=== PATIENT | female | born 2005 | race Caucasian/White ===

== ENCOUNTER 2024-09-25 07:21 | Outpatient (CLI) | payer OTHER, SELFPAY ==
--- NOTE | ~2024-09-25 | US_ITS ---
EXAMINATION: US OB <= 14 weeks fetus DATE: 09/25/2024 08:11 INDICATION: Amenorrhea TECHNIQUE: Real-time transabdominal obstetric ultrasound. FINDINGS: No prior studies for comparison. The uterus measures 13.5 x 7.7 x 9.5 cm. There is an intrauterine gestational sac, with pole id entified. The crown rump length measures 4.9 cm, which correlates with a estimated gestational age o f 11 weeks 5 days. heart tones are identified measuring 146 BPM. The ovaries are within isa l limits. Right ovary measures 2.8 x 2.3 x 2.6 cm. Left ovary measures 4.3 x 1.3 x 2.5 cm. IMPRESSION: 1. SL IUP with an EGA of 11 weeks, 5 days (EDC by current ultrasound of 04/11/2025). Reviewed, dictated and finalized at location A. IMPRESSION: 1. SL IUP with an EGA of 11 weeks, 5 days (EDC by current ultrasound of 025).
--- OUTSIDE RECORDS SUMMARY | 2024-09-25 07:25 | XMS_ITS | Clinical Summary ---
Author Organization [facility] Address [address] [place] [address] Care Team Providers Care Journeyman Apprentice Electricians Name Role Phone Unavailable Primary Care Provider Unavailabl e Source Comments [facility],non-owned Affiliates and Associated Physician Practices is amultiple site organization consisting of ambulatory clinics and hospital sitesin [place], [place], [place] and [place]. This disclosure is being madepursuant to the Care Everywhere program and may not contain all information available regarding this patient. Last updated 18.[facility] Allergies No known active allergies Medications * Be aware that medications may not be up to date on this document. Alwaysverify current medications with the patient. mirtazapine (REMERON) 15 MG tablet Take 15 mg by mouth at bedtime. Active melatonin 3 MG tablet Take 3 mg by mouth at bedtime. Active loratadine (CLARITIN) 10 MG tablet Take 10 mg by mouth once daily as needed for Runny Nose or Allergies Active Social History Tobacco Use Types Packs/Day Years Used Date Smoking Tobacco: Passive Smo ke Exposure - Never Smoker Comments Unknown Sex and Gender Information Value Date Recorded Sex Assigned at Not on file Legal Sex Female 5:45 AM POLYSOMNOGRAPHIC TECH Gender Identity Not on file Sexual Orientation Not on file Last Filed Vital Signs Vital Sign Reading Time Taken Comments Blood Pressure 102/68 05/28/2018 8:53 AM POLYSOMNOGRAPHIC TECH Pulse 76 05/28/2018 8:53 AM POLYSOMNOGRAPHIC TECH Temperature 36.9 C (98.5 F) 08/16/2014 12:40 AM CDT Respiratory Rate 16 05/28/2018 8:53 AM POLYSOMNOGRAPHIC TECH Oxygen Saturation 100% 08/16/2014 12:40 AM CDT Inhaled Oxygen Concentration - - Weight 55.6 kg (122 lb 9.2 oz) 05/28/2018 8:53 A M POLYSOMNOGRAPHIC TECH Height 163.5 cm (5' 4.37 ) 05/28/2018 8:53 AM CS T Body Mass Index 20.8 05/28/2018 8:53 AM POLYSOMNOGRAPHIC TECH Plan of Treatment Health Maintenance Due Date Last Done Comments HIV SCREENING 2019 HPV VACCINE (1 - 3-dose series) 2019 CHLAMYDIA/GONORRHEA SCREENING 2020 MENINGOCOCCAL (Group B) VACC INE SHARED DECISION-MAKING (1 of 2 - Standard) 2020 HEPATITIS C SCREENING 07/13/2022 DTAP/TDAP/TD VACCINES (1 - Tdap) 2023 HEPATITIS B VACCINE (1 of 3 - 19+ 3-dose series) 2023 COVID-19 VACCINE (1 - 2023-2 5 season) 2024 DEPRESSION SCREENING 06/09/2024 INFLUENZA VACCINE (Season Ended) 2025 ZOSTER VACCINE (1 of 2) 2054 HIB VACCINE Aged Out No longer eligi ble based on patient's age to complete this topic MENINGOCOCCAL GROUPS A/C/Y/W VACCINE Aged Out No longer eligible b ased on patient's age to complete this topic PNEUMOCOCCAL VACCINE Aged Out No long er eligible based on patient's age to complete this topic Additional Health Concerns Infection Onset Date Last 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
== END 2024-09-25 07:22 | disposition home or self-care (01) ==
PROVIDERS: Visit Provider Nurse Practitioner Obstetrics & Gynecology
DX: Z34.91 Encounter for supervision of normal pregnancy, unspecified, first trimester (principal); Z3A.11 11 weeks gestation of pregnancy
CPT/HCPCS: 76801

== ENCOUNTER 2024-10-18 12:55 | Outpatient (CLI) | payer OTHER, SELFPAY ==
--- OUTSIDE RECORDS SUMMARY | 2024-10-18 13:01 | XMS_ITS | Clinical Summary ---
Author Organization [facility] Address [address] [place] [address] Care Team Providers Care Schedule Checker Name Role Phone Unavailable Primary Care Provider Unavailabl e Source Comments [facility],non-owned Affiliates and Associated Physician Practices is amultiple site organization consisting of ambulatory clinics and hospital sitesin [place], [place], [place] and [place]. This disclosure is being madepursuant to the Care Everywhere program and may not contain all information available regarding this patient. Last updated 18.[facility] Allergies No known active allergies Medications * [...] on file Legal Sex Female 5:45 AM DIRECTOR BLOOD BANK Gender Identity Not on file Sexual Orientation Not on file Last Filed Vital Signs Vital Sign Reading Time Taken Comments Blood Pressure 102/68 05/28/2018 8:53 AM DIRECTOR BLOOD BANK Pulse 76 05/28/2018 8:53 AM DIRECTOR BLOOD BANK Temperature 36.9 C (98.5 F) 08/16/2014 12:40 AM CDT Respiratory Rate 16 05/28/2018 8:53 AM DIRECTOR BLOOD BANK Oxygen Saturation 100% 08/16/2014 12:40 AM CDT Inhaled Oxygen Concentration - - Weight 55.6 kg (122 lb 9.2 oz) 05/28/2018 8:53 A M DIRECTOR BLOOD BANK Height 163.5 cm (5' 4.37 ) 05/28/2018 8:53 AM CS T Body Mass Index 20.8 05/28/2018 8:53 AM DIRECTOR BLOOD BANK Plan of Treatment Health Maintenance Due Date [...] Date Last 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
[2024-10-18 13:23] LABS: Hematocrit 40.6 % (37.0-47.0); Hemoglobin 13.5 g/dL (12.0-15.0); Mean Corpuscular HGB Conc 33.3 g/dl (32-36); Mean Corpuscular Hemoglobin 31.9 pg (26-34); Mean Platelet Volume 10.7 fl (7.4-10.4); Platelet Count Result 199 k/mm3 (150-375); Red Blood Count 4.23 M/mm3 (4.2-5.4); Red Cell Distribution Width 13.6 % (11.5-14.5); White Blood Count 9.1 K/mm3 (4.5-10.0)
[2024-10-18 14:14] LABS: HIV 1/2 Ab P24 Ag Result Negative (Negative)
[2024-10-18 14:15] LABS: Syphilis IgG/IgM Antibody Negative (Negative)
[2024-10-18 14:15] LABS: Add Urine Microscopic? YES; Appearance Urine Clear (Clear); Bacteria Urine 1+ /hpf; Bilirubin Urine Negative (Negative); Blood Urine Negative (Negative); Color Urine Yellow (Yellow); Glucose Urine UA Negative (Negative); Ketones Urine Negative (Negative); Leukocyte Esterase Ur Trace LEU/UL (Negative); Nitrate Urine Negative (Negative); Non Pathogenic Casts 0-2; Protein Urine Negative (Negative); RBC Urine 0-2 /hpf (0-2); Specific Grav Ur 1.014 (1.001-1.035); Squamous Epithelial Cell Urine Occasional /hpf (Few); Urobilinogen Urine 0.2 mg/dL (<2.0); pH Urine 8.5 (5.0-9.0)
[2024-10-18 14:18] LABS: Hepatitis B Surface Antigen Negative (Negative); Rubella IgG Antibody 44.9 IU/ML
[2024-10-18 14:35] LABS: Hepatitis C Virus Antibody Negative (Negative)
[2024-10-19 20:19] LABS: Hematocrit 42.4 % (35.0-45.0); Hemoglobin 13.6 g/dL (11.7-15.5); MCH 31.9 pg (27.0-33.0); MCV 99.5 fL (80.0-100.0); RDW 12.8 % (11.0-15.0); Red Blood Cell Count 4.26 Million/uL (3.80-5.10)
== END 2024-10-18 12:56 | disposition home or self-care (01) ==
PROVIDERS: Visit Provider Obstetrics & Gynecology
DX: Z34.90 Encounter for supervision of normal pregnancy, unspecified, unspecified trimester (principal); Z3A.00 Weeks of gestation of pregnancy not specified
CPT/HCPCS: 36415; 81001; 83021; 84443; 85027; 86593; 86703; 86762; 86803; 86850; 86900; 86901; 87086; 87340; G0432

== ENCOUNTER 2024-11-26 13:30 | Outpatient (CLI) | payer OTHER, SELFPAY | END 2024-11-26 13:31 | disposition home or self-care (01) | LOC: ANHLAB 13:31 | PROVIDERS: Visit Provider Obstetrics & Gynecology | DX: Z34.90 Encounter for supervision of normal pregnancy, unspecified, unspecified trimester (principal) | CPT/HCPCS: 36415; 86787 ==

== ENCOUNTER 2025-02-14 15:58 | Outpatient (CLI) | payer OTHER, SELFPAY ==
--- OUTSIDE RECORDS SUMMARY | 2025-02-14 16:02 | XMS_ITS | Clinical Summary ---
Author Organization [facility] Address [address] [place] [address] Care Team Providers Care Technical Report Writer Name Role Phone Unavailable Primary Care Provider Unavailabl e Source Comments [facility],non-owned Affiliates and Associated Physician Practices is amultiple site organization consisting of ambulatory clinics and hospital sitesin [place], [place], [place] and [place]. This disclosure is being madepursuant to the Care Everywhere program and may not contain all information available regarding this patient. Last updated 18.[facility] Allergies No known active allergies Medications [...] needed for Runny Nose or Allergies Active -FeFum- FA-DHA w/o A ( + DHA PO) Take 1 Each by mouth once daily Active Encounters Date Type Department Care Team Description 12/20/2024 8:04 AM CDT - 12/20/2024 11:59 PM CDT Hospital Encounter [facility] [address] [place] [address] Carla Card MD Discharge Disposition: Home or Self Care 11/22/2024 7:30 AM CDT - 11/22/2024 11:59 PM CDT Hospital Encounter [facility] [address] [place] [id number] Robi Faith MD Discharge Disposition: Home or Self Care from Last 3 Months Social History Tobacco Use Types Packs/Day Years Used Date Smoking Tobacco: Passive Smo ke Exposure - Never Smoker Estimated Date of Delivery Comme nts Yes 04/06/2025 Based on last me nstrual period of 06/30/2024 Sex and Gender Information Value Date Recorded Sex Assigned at Not on file Legal Sex Female 5:45 AM ENVIRONMENTAL COORDINATOR Gender Identity Not on file Sexual Orientation Not on file Last Filed Vital Signs Vital Sign Reading Time Taken Comments Blood Pressure 102/68 05/28/2018 8:53 AM ENVIRONMENTAL COORDINATOR Pulse 76 05/28/2018 8:53 AM ENVIRONMENTAL COORDINATOR Temperature 36.9 C (98.5 F) 08/16/2014 12:40 AM CDT Respiratory Rate 16 05/28/2018 8:53 AM ENVIRONMENTAL COORDINATOR Oxygen Saturation 100% 08/16/2014 12:40 AM CDT Inhaled Oxygen Concentration - - Weight 55.6 kg (122 lb 9.2 oz) 05/28/2018 8:53 A M ENVIRONMENTAL COORDINATOR Height 163.5 cm (5' 4.37) 05/28/2018 8:53 AM CS T Body Mass Index 20.8 05/28/2018 8:53 AM ENVIRONMENTAL COORDINATOR Plan of Treatment Health Maintenance Due Date Last Done Comments HIV SCREENING 2019 HPV VACCINE (1 - 3-dose series) 2019 CHLAMYDIA/GONORRHEA SCREENING 2020 MENINGOCOCCAL (Group B) VACC INE SHARED DECISION-MAKING (1 of 2 - Standard) 2020 HEPATITIS C SCREENING 07/13/2022 DTAP/TDAP/TD VACCINES (1 - Tdap) 2023 HEPATITIS B VACCINE (1 of 3 - 19+ 3-dose series) 2023 DEPRESSION SCREENING 06/09/2024 OB-ONE HOUR GLUCOSE 12/29/2024 OB-TDAP CURRENT 01/05/2025 OB-RHOGAM INJECTION 01/12/2025 COVID-19 VACCINE (1 - 2023-2 5 season) 2025 INFLUENZA VACCINE (#1) 2025 Respiratory Syncytial Virus (RSV) Vaccine Pt: or over 60 yrs (1 - Risk 1-dose series) 02/09/2025 ZOSTER VACCINE (1 of 2) 2054 HIB VACCINE Aged Out No longer eligi ble based on patient's age to complete this topic MENINGOCOCCAL GROUPS A/C/Y/W VACCINE Aged Out No longer eligible b ased on patient's age to complete this topic PNEUMOCOCCAL VACCINE Aged Out No long er eligible based on patient's age to complete this topic Procedures Procedure Name Priority Date/Time Associated Diagnosis Comments SONOGRAM - COMPLETE Routine 12/20/2024 8 :14 AM CDT Encounter for supervision of normal first in second trimester (HCC) 23 weeks gestation of ([facility] Encounter for follow-up ultrasound of anatomy ([facility]) Encounter for ultrasound to assess growth ([facility]) SONOGRAM - COMPLETE Routine 11/22/2024 7 :28 AM CDT Encounter for anatomic survey ([facility]) 20 weeks gestation of ([facility]) Encounter for supervision of normal first in second trimester ([facility]) from Last 3 Months Results * Sonogram - Complete (12/20/2024 8:14 AM CDT) Only the most recent of2 resultswithin the time period is included. Linked Results Indication ======== Encounter for other screening follow-up Asthma complicating History ====== OB History 1 Maternal Assessment Physical Exam Height 163 cm, 5 ft 4 in. Weight 68 kg, 150 lb. Initial weight 53 kg, 117 lb. BMI 25.75 kg/m . Initial BMI 20.08 kg/m . Weight gain 15 kg, 33 lb Method ====== Transabdominal ultrasound, Transabdominal ultrasound. View: Sufficient ========= Gore . Number of fetuses: 1 Dating ====== Date Details Gest. age GEGE LMP 06/30/2024 24 w + 5 d 04/06/2025 Stated GEGE 24 w + 5 d 04/06/2025 Previous U/S 09/26/2024 GA, GA 11 w + 5 d 23 w + 6 d 04/12/2025 U/S 12/20/2024 based upon AC, BPD, Femur, HC 24 w + 3 d 04/08/2025 Assigned dating based on the LMP, selected on 11/22/2024 24 w + 5 d 04/06/2025 General Evaluation Cardiac activity present. FHR 143 bpm. Presentation: variable Placenta: Placental site: posterior Umbilical cord: 3-vessel cord and normal placental cord insertion site were documented previously Amniotic fluid: Amount of AF: normal. MVP 6.2 cm Biometry BPD 59.0 mm 24w 1d 22% Hadlock HC 221.3 mm 24w 1d 14% Hadlock AC 210.1 mm 25w 4d 68% Hadlock Femur 42.6 mm 23w 6d 15% Hadlock Humerus 42.8 mm 25w 4d 71% Sandra HC / AC 1.05 Weight Calculation: EFW 732 g 42% Hadlock EFW (lb,oz) 1 lb 10 oz EFW by Hadlock (HC-AC-FL) Growth Overview Exam date GA BPD (mm) HC (mm) AC (mm) FL (mm) HL (mm) EFW (g) 11/22/2024 20w 5d 45.3 13% 172.7 10% 163.7 67% 38.8 91% 32.5 56% 436 87% 12/20/2024 24w 5d 59 22% 221.3 14% 210.1 68% 42.6 15% 42.8 71% 732 42% Anatomy The following structures appear normal: Heart / Thorax RVOT view. LVOT view. Bicaval view. Ductal arch view. Abdomen Stomach. Kidneys. Bladder. Extremities / Skeleton Left leg. Left foot. The following structures were documented previously: Head / Neck Cranium. Lateral ventricles. Choroid plexus. Midline falx. Cavum septi pellucidi. Cerebellum. Cisterna magna. Thalami. Nuchal fold. Face Lips. Profile. Nose. Nasal bone. Orbits. Heart / Thorax 4-chamber view. 3-vessel view. [id number]-[id number] view. Situs. Aortic arch view. Great vessels. Right lung. Left lung. Diaphragm. Abdomen Cord insertion. Bowel. Genitals. Spine Cervical spine. Thoracic spine. Lumbar spine. Sacral spine. Extremities / Skeleton Arms. Hands. Right leg. Right foot. sex: male. Impression ========= 1) Gore gestation, 24w5d 2) Biometry is consistent with appropriate growth 3) The amniotic fluid volume is within normal limits 4) No abnormalities have been detected on the, now complete, anatomic survey Comment ======== ultrasound alone cannot detect all structural, genetic, or functional , placental, or maternal abnormalities Follow-up ======== Follow-up ultrasound only if clinically indicated Coding ====== Diagnoses O99.512, J45.909: Diseases of the respiratory system complicating , Asthma Procedures 69607: US Preg Uterus Follow Up [facility] GTI PACS Anatomical Region Laterality Modality Other 12/20/2024 8:14 AM CDT Arturo Elizondo MD [facility] ORDERABLES Edited Result - Final from Last 3 Months Additional Health Concerns Infection Onset Date Last 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
[2025-02-14 16:15] LABS: Hematocrit 37.7 % (37.0-47.0); Hemoglobin 12.6 g/dL (12.0-15.0); Mean Corpuscular HGB Conc 33.4 g/dl (32-36); Mean Corpuscular Hemoglobin 32.1 pg (26-34); Mean Corpuscular Volume 95.9 fl (80-100); Platelet Count Result 200 k/mm3 (150-375); Red Blood Count 3.93 M/mm3 (4.2-5.4); White Blood Count 10.4 K/mm3 (4.5-10.0)
[2025-02-14 17:01] LABS: Syphilis IgG/IgM Antibody Non-Reactive (Nonreactive)
[2025-02-14 17:11] LABS: HIV 1/2 Ab P24 Ag Result Negative (Negative)
== END 2025-02-14 15:59 | disposition home or self-care (01) ==
PROVIDERS: Visit Provider Nurse Practitioner Obstetrics & Gynecology
DX: Z34.90 Encounter for supervision of normal pregnancy, unspecified, unspecified trimester (principal); Z3A.00 Weeks of gestation of pregnancy not specified
CPT/HCPCS: 36415; 85027; 86593; 86703; G0432

== ENCOUNTER 2025-03-29 13:10 | Outpatient (RCR) | payer OTHER, SELFPAY ==
[2025-02-13 13:24] VITALS: BP 113/72; PULSE 83
--- NOTE | ~2025-03-29 | US_ITS ---
EXAMINATION: US OB follow up DATE: 03/29/2025 14:52 INDICATION: Estimated weight TECHNIQUE: Real-time transabdominal obstetric ultrasound. FINDINGS: Comparison to multiple prior studies sequentially, with oldest reviewed study dated 09/25/2024. There is a single living fetus in vertex presentation. The placenta is posterior without placenta previa. ATILIO is normal measuring 20.9 cm. cardiac activity and movement is noted with a heart rate of 128 beats per minute. The amniotic fluid volume is normal. The following biometric data were obtained: BPD: 95mm corresponds to gestational age 39 weeks 0 days. Head circumference: 349mm corresponds to gestational age 40 weeks 4 days. Abdominal circumference: 387mm which is out of range greater than 97th percentile. Femur length: 72mm corresponds to gestational age 37 weeks 0 days. Estimated weight: 4236grams +/- 635grams, greater than 97th percentile.] IMPRESSION: 1. Single living intrauterine in vertex presentation with an estimated gestational age of 38 weeks 6 days by inititial ultrasound. Accelerated interval growth. Estimated weight is greater than 97th percentile. 2. Normal placenta. Reviewed, dictated and finalized at location O. IMPRESSION: 1. Single living intrauterine in vertex presentation with an estimat ed gestational age of 38 weeks 6 days by inititial ultrasound. Accelerated inte rval growth. Estimated weight is greater than 97th percentile. 2. Normal placenta.
--- NOTE | ~2025-03-29 | US_ITS ---
EXAMINATION: US OB BPP wo non-stress, 02/13/2025 12:10 CDT HISTORY: Y Comparison: None Technique: Cool-scale and color Doppler images were obtained FINDINGS: Single live intrauterine in vertex presentation. The placenta is located posteriorly and is transverse. cardiac heart rate 124. breathing demonstrated. IMPRESSION: Single live intrauterine . Reviewed, dictated and finalized at location A. IMPRESSION: Single live intrauterine .
[2025-03-29 16:23] VITALS: BP 126/75; PULSE 83
== END 2025-03-29 16:48 | disposition other institution (70) ==
LOC: ANHOBOP 13:10
PROVIDERS: Visit Provider Obstetrics & Gynecology
DX: O36.8190 Decreased fetal movements, unspecified trimester, not applicable or unspecified (principal); Z3A.32 32 weeks gestation of pregnancy; Z3A.38 38 weeks gestation of pregnancy
CPT/HCPCS: 59025; 76816; 76819

== ENCOUNTER 2025-03-29 16:11 | Inpatient (IN) | payer OTHER, SELFPAY ==
[2025-03-29] VITALS (35 sets, daily range): BP systolic 101–133; BP diastolic 71–86; PULSE 58–125; TEMP 37.2; O2SAT 93–100; BMI 31.0
[2025-03-29] MEDS: LACTATED RINGERS 1,000 ML 999 ML IV CONT (17:17)
[2025-03-29 17:31] LABS: Hematocrit 39.9 % (37.0-47.0); Hemoglobin 13.4 g/dL (12.0-15.0); Immature Granulocyte Percent A 0.5 % (0-0.5); Lymphocytes Absolute Auto 2.48 K/mm3 (0.9-3.2); Mean Corpuscular HGB Conc 33.6 g/dl (32-36); Mean Corpuscular Hemoglobin 31.9 pg (26-34); Mean Corpuscular Volume 95.0 fl (80-100); Nucleated Red Blood Cells Absolute Auto 0.000 K/mm3 (0.0-0.012); Nucleated Red Blood Cells Perc 0.0 % (0.0-0.2); Platelet Count Result 201 k/mm3 (150-375); Red Blood Count 4.20 M/mm3 (4.2-5.4); White Blood Count 11.9 K/mm3 (4.5-10.0)
--- NOTE | 2025-03-29 17:42 | LDADM ---
This patient, Lico Montgomery, was admitted to Labor/Delivery/Recovery 107 on 03/29/25 at 16:11. Plans for labor, pain management and were discussed with patient. Patient/family oriented to hospital policies and general routines including ID bracelet, bed and alarms, visiting hours, pain management, procedures, bathroom and other care routines, personal items, smoking policy, room service/diet and guest tray routines, security routines, and visiting hours. Patient/Family are encouraged to report perceived risks to care and to ask questions if they do not understand what they are told or what they should do. See OBIX for further documentation.
--- NOTE | 2025-03-29 17:50 | WPDANESEPP ---
Anes - Eval Pre Procedure Procedure: labor epidural Date/Time: 03/29/25 17:50 Surgeon: jean marie Preop Diagnosis: pain during labor Pre Op Diagnosis: iol Patient Data Age: 19 Gender: F Height: Weight: Last Vital Signs Pulse 81 03/29/25 17:16 BP 133/86 03/29/25 17:16 Allergies Allergy/AdvReac Type Severity Reaction Status Date / Time lavender Allergy Difficulty Uncoded 03/29/25 12:44 Breathing Home Medications ?Medication ?Instructions ?Recorded ?Confirmed ?Type docosahexaenoic acid 200 mg 200 mg PO DAILY #90 caps 10/18/24 03/21/25 Rx capsule ( DHA) Laboratory Tests 03/29/25 17:15 WBC 11.9 H K/mm3 (4.5-10.0) RBC 4.20 M/mm3 (4.2-5.4) Hgb 13.4 g/dL (12.0-15.0) Hct 39.9 % (37.0-47.0) MCV 95.0 fl (80-100) MCH 31.9 pg (26-34) MCHC 33.6 g/dl (32-36) RDW 14.2 % (11.5-14.5) Plt Count 201 k/mm3 (150-375) MPV 11.4 H fl (7.4-10.4) Immature Gran % (Auto) 0.5 % (0-0.5) Neut % (Auto) 70.0 % (45.5-73.1) Lymph % (Auto) 20.8 % (18.3-44.2) [place] % (Auto) 7.7 % (2.6-8.5) Eos % (Auto) 0.6 % (0-4.4) Baso % (Auto) 0.4 % (0.2-1.2) Lymph # (Auto) 2.48 K/mm3 (0.9-3.2) [place] # (Auto) 0.9 H K/mm3 (0.1-0.6) Eos # (Auto) 0.1 K/mm3 (0-0.3) Baso # (Auto) 0.1 K/mm3 (0.0-0.1) Abs Immat Gran (auto) 0.06 H K/mm3 (0.00-0.031) Absolute Neuts (auto) 8.4 H K/mm3 (1.3-6.7) Absolute Nucleated RBC 0.000 K/mm3 (0.0-0.012) Nucleated RBC % 0.0 % (0.0-0.2) Patient hx anesthesia problems: none Family hx anesthesia problems: none Results Review: All pre-operative results and documents have been reviewed as part of the pre-operative evaluation. [facility] Past Medical History Medical History (Updated 03/29/25 @ 17:51 by Fay Gould CRNA) Asthma IUP (intrauterine ), incidental Encounter for Depo-Provera contraception History of irregular menstrual bleeding Lactose intolerance Family History Family History Father Alcoholism Depression Anxiety Grandparent Alcoholism Grandparent Alcoholism Social History Social History Smoking status: Current every day smoker Tobacco type: e-cigarettes/vaping Alcohol intake: never Substance use: never Do You Feel Safe in your Home?: Yes Lack of Transportation: No Lack of Food: Never True Current Housing: I Have Housing Concerned About Future Housing: No Difficulty Paying Gas/Electric Bills: No Difficulty Paying for Meds: No Currently Unemployed: No Education: High School Diploma/GED Difficulty w/ Childcare or Family Care: No Spiritual care concerns: No Exam Day of Procedure 03/29/25 17:50
[2025-03-29 18:31] LABS: Syphilis IgG/IgM Antibody Non-Reactive (Nonreactive)
--- OUTSIDE RECORDS SUMMARY | 2025-03-29 19:46 | XMS_ITS | Clinical Summary ---
Author Organization [facility] Address [address] [place] [address] Care Team Providers Care Solar Resource Assessor Name Role Phone Unavailable Primary Care Provider Unavailabl e Source Comments [facility],non-owned Affiliates and Associated Physician Practices is amultiple site organization consisting of ambulatory clinics and hospital sitesin [place], [place], [place] and [place]. This disclosure is being madepursuant to the Care Everywhere program and may not contain all information available regarding this patient. Last updated 18.[facility] Allergies No known active allergies [...] 1 Each by mouth once daily Active Social History Tobacco Use Types Packs/Day Years Used Date Smoking Tobacco: Passive Smo ke Exposure - Never Smoker Estimated Date of Delivery Comme nts Yes 04/06/2025 Based on last me nstrual period of 06/30/2024 Sex and Gender Information Value Date Recorded Sex Assigned at Not on file Legal Sex Female 5:45 AM CLIENT SUPPORT ASSOCIATE Gender Identity Not on file Sexual Orientation Not on file Last Filed Vital Signs Vital Sign Reading Time Taken Comments Blood Pressure 102/68 05/28/2018 8:53 AM CLIENT SUPPORT ASSOCIATE Pulse 76 05/28/2018 8:53 AM CLIENT SUPPORT ASSOCIATE Temperature 36.9 C (98.5 F) 08/16/2014 12:40 AM CDT Respiratory Rate 16 05/28/2018 8:53 AM CLIENT SUPPORT ASSOCIATE Oxygen Saturation 100% 08/16/2014 12:40 AM CDT Inhaled Oxygen Concentration - - Weight 55.6 kg (122 lb 9.2 oz) 05/28/2018 8:53 A M CLIENT SUPPORT ASSOCIATE Height 163.5 cm (5' 4.37) 05/28/2018 8:53 AM CS T Body Mass Index 20.8 05/28/2018 8:53 AM CLIENT SUPPORT ASSOCIATE Plan of Treatment Health Maintenance Due Date [...] CURRENT 01/05/2025 OB-RHOGAM INJECTION 01/12/2025 COVID-19 VACCINE ( - 2023-2 5 season) 2025 INFLUENZA VACCINE (#1) 2025 OB-GROUP B STREP SCREEN 03/02/2025 ZOSTER VACCINE (1 of 2) 2054 HIB VACCINE Aged Out No longer eligi ble based on patient's age to complete this topic MENINGOCOCCAL GROUPS A/C/Y/W VACCINE Aged Out No longer eligible b ased on patient's age to complete this topic PNEUMOCOCCAL VACCINE Aged Out No long er eligible based on patient's age to complete this topic Respiratory Syncytial Virus (RSV) Vaccine Pt: or over 60 yrs (No Doses Required) Completed Additional Health Concerns Infection Onset Date Last 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 * Guarantor: OPHELIA TRIPLETT Account Type Relation to Patient Date of Phone Billing Address Personal/Family Grandmother
[2025-03-29] MEDS: ZOLPIDEM TARTRATE (*CRX) 5 MG TABLET 10 MG PO (23:20)
[2025-03-30] VITALS (348 sets, daily range): BP systolic 93–146; BP diastolic 48–100; PULSE 29–197; RESP 18; TEMP 36.1–37.2; O2SAT 80–100
[2025-03-30] MEDS: LACTATED RINGERS 1,000 ML 125 ML IV CONT ×3 (05:10→10:33)
[2025-03-30] MEDS: OXYTOCIN 30 UNITS/NS 500 ML 30 UNITS/500 ML BAG IV CONT (07:02)
[2025-03-30] MEDS: ONDANSETRON INJ 4 MG/2 ML VIAL IV PUSH ×2 (13:17→19:18)
--- NOTE | 2025-03-30 14:55 | P.PNOB_ITS ---
Pain Control Date/time seen: 03/30/25 1159 Comments: Cat 2, AROM clear /.
--- NOTE | 2025-03-30 14:55 | PM.IMHP ---
H&P: HPI History of Present Illness Date/Time: 03/30/25 14:55 Chief Complaint: Non reassuring testing. Narrative: 19 y/o G1 admitted shanta 38 6/7 for nonrepetitive late decelerations. PNC uncomplicated. History of tobacco use which she stopped during . Ultrasound on day of admission showed LGA. [facility] Past Medical History Medical History Asthma IUP (intrauterine ), incidental Encounter for Depo-Provera contraception History of irregular menstrual bleeding Lactose intolerance Family History Family History Father Alcoholism Depression Anxiety Grandparent Alcoholism Grandparent Alcoholism Social History Social History Smoking status: Former smoker Tobacco type: e-cigarettes/vaping Smoking end date: 08/07/24 Alcohol intake: never Substance use: never Do You Feel Safe in your Home?: Yes Lack of Transportation: No Lack of Food: Sometimes True Current Housing: I Have Housing Concerned About Future Housing: No Difficulty Paying Gas/Electric Bills: No Difficulty Paying for Meds: No Currently Unemployed: No Education: High School Diploma/GED Difficulty w/ Childcare or Family Care: No Spiritual care concerns: No Meds Home Medications and Allergies Home Medications ?Medication ?Instructions ?Recorded ?Confirmed ?Type docosahexaenoic acid 200 mg 200 mg PO DAILY #90 caps 10/18/24 03/29/25 Rx capsule ( DHA) Allergies Allergy/AdvReac Type Severity Reaction Status Date / Time lavender Allergy Difficulty Uncoded 03/29/25 12:44 Breathing Vital Signs Vital Signs - 24 hr 03/29/25 17:04 03/29/25 17:16 03/29/25 17:41 Temperature Pulse Rate 87 81 Blood Pressure 131/83 133/86 Pulse Oximetry Oxygen Delivery Room Air 03/29/25 18:03 03/29/25 19:00 03/29/25 20:47 Temperature 99 F Pulse Rate 78 62 Blood Pressure 101/77 120/71 Pulse Oximetry Oxygen Delivery 03/29/25 21:01 03/29/25 21:40 03/29/25 21:55 Temperature Pulse Rate 66 Blood Pressure 114/73 Pulse Oximetry 98 97 Oxygen Delivery 03/29/25 22:00 03/29/25 22:01 03/29/25 22:02 Temperature 98.9 F Pulse Rate 66 Blood Pressure 124/85 Pulse Oximetry 100 99 Oxygen Delivery 03/29/25 22:07 03/29/25 22:10 03/29/25 22:15 Temperature Pulse Rate Blood Pressure Pulse Oximetry 98 100 100 Oxygen Delivery 03/29/25 22:20 03/29/25 22:25 03/29/25 22:30 Temperature Pulse Rate Blood Pressure Pulse Oximetry 100 100 100 Oxygen Delivery 03/29/25 22:47 03/29/25 22:47 03/29/25 22:52 Temperature Pulse Rate Blood Pressure Pulse Oximetry 99 98 99 Oxygen Delivery 03/29/25 22:57 03/29/25 23:01 03/29/25 23:02 Temperature Pulse Rate 74 Blood Pressure 118/80 Pulse Oximetry 98 100 Oxygen Delivery 03/29/25 23:07 03/29/25 23:11 03/29/25 23:16 Temperature Pulse Rate Blood Pressure Pulse Oximetry 100 99 100 Oxygen Delivery 03/29/25 23:18 03/29/25 23:23 03/29/25 23:28 Temperature Pulse Rate Blood Pressure Pulse Oximetry 100 99 100 Oxygen Delivery 03/29/25 23:31 03/29/25 23:36 03/29/25 23:41 Temperature Pulse Rate Blood Pressure Pulse Oximetry 100 100 100 Oxygen Delivery 03/29/25 23:46 03/29/25 23:48 03/29/25 23:51 Temperature Pulse Rate Blood Pressure Pulse Oximetry 100 100 93 Oxygen Delivery 03/29/25 23:56 03/30/25 00:00 03/30/25 00:01 Temperature 98.9 F Pulse Rate 65 Blood Pressure 120/77 Pulse Oximetry 98 98 Oxygen Delivery 03/30/25 00:06 03/30/25 00:11 03/30/25 00:16 Temperature Pulse Rate Blood Pressure Pulse Oximetry 98 98 98 Oxygen Delivery 03/30/25 00:21 03/30/25 00:21 03/30/25 00:27 Temperature Pulse Rate Blood Pressure Pulse Oximetry 98 99 98 Oxygen Delivery 03/30/25 00:32 03/30/25 00:37 03/30/25 00:42 Temperature Pulse Rate Blood Pressure Pulse Oximetry 97 96 96 Oxygen Delivery 03/30/25 00:47 03/30/25 00:52 03/30/25 00:57 Temperature Pulse Rate Blood Pressure Pulse Oximetry 96 95 95 Oxygen Delivery 03/30/25 01:01 03/30/25 01:06 03/30/25 01:11 Temperature Pulse Rate 111 H Blood Pressure 107/48 L Pulse Oximetry 94 95 97 Oxygen Delivery 03/30/25 01:16 03/30/25 01:21 03/30/25 01:26 Temperature Pulse Rate Blood Pressure Pulse Oximetry 97 97 98 Oxygen Delivery 03/30/25 01:31 03/30/25 01:36 03/30/25 01:41 Temperature Pulse Rate Blood Pressure Pulse Oximetry 97 97 97 Oxygen Delivery 03/30/25 01:47 03/30/25 01:50 03/30/25 01:51 Temperature Pulse Rate Blood Pressure Pulse Oximetry 100 99 100 Oxygen Delivery 03/30/25 01:56 03/30/25 02:01 03/30/25 02:06 Temperature Pulse Rate 77 Blood Pressure 118/71 Pulse Oximetry 98 97 97 Oxygen Delivery 03/30/25 02:11 03/30/25 02:20 03/30/25 02:23 Temperature Pulse Rate Blood Pressure Pulse Oximetry 98 97 99 Oxygen Delivery 03/30/25 02:28 03/30/25 02:33 03/30/25 02:38 Temperature Pulse Rate Blood Pressure Pulse Oximetry 99 99 98 Oxygen Delivery 03/30/25 02:43 03/30/25 02:48 03/30/25 02:51 Temperature Pulse Rate Blood Pressure Pulse Oximetry 100 100 99 Oxygen Delivery 03/30/25 02:56 03/30/25 03:01 03/30/25 03:06 Temperature Pulse Rate 93 Blood Pressure 122/81 Pulse Oximetry 99 98 99 Oxygen Delivery 03/30/25 03:10 03/30/25 03:12 03/30/25 03:17 Temperature Pulse Rate Blood Pressure Pulse Oximetry 98 99 100 Oxygen Delivery 03/30/25 03:20 03/30/25 03:25 03/30/25 03:30 Temperature Pulse Rate Blood Pressure Pulse Oximetry 98 95 95 Oxygen Delivery 03/30/25 03:35 03/30/25 03:40 03/30/25 03:45 Temperature Pulse Rate Blood Pressure Pulse Oximetry 96 95 95 Oxygen Delivery 03/30/25 03:50 03/30/25 03:55 03/30/25 04:00 Temperature Pulse Rate Blood Pressure Pulse Oximetry 95 95 96 Oxygen Delivery 03/30/25 04:01 03/30/25 04:05 03/30/25 04:06 Temperature Pulse Rate 87 Blood Pressure 119/79 Pulse Oximetry 95 97 Oxygen Delivery 03/30/25 04:11 03/30/25 04:14 03/30/25 04:19 Temperature Pulse Rate Blood Pressure Pulse Oximetry 97 99 97 Oxygen Delivery 03/30/25 04:24 03/30/25 04:29 03/30/25 04:34 Temperature Pulse Rate Blood Pressure Pulse Oximetry 97 97 97 Oxygen Delivery 03/30/25 04:39 03/30/25 04:44 03/30/25 04:49 Temperature Pulse Rate Blood Pressure Pulse Oximetry 97 98 97 Oxygen Delivery 03/30/25 04:54 03/30/25 04:59 03/30/25 05:04 Temperature Pulse Rate Blood Pressure Pulse Oximetry 97 98 97 Oxygen Delivery 03/30/25 05:05 03/30/25 05:10 03/30/25 05:13 Temperature Pulse Rate Blood Pressure Pulse Oximetry 99 98 98 Oxygen Delivery 03/30/25 05:25 03/30/25 05:27 03/30/25 05:32 Temperature Pulse Rate Blood Pressure Pulse Oximetry 100 98 98 Oxygen Delivery 03/30/25 05:37 03/30/25 05:42 03/30/25 05:47 Temperature Pulse Rate Blood Pressure Pulse Oximetry 99 98 97 Oxygen Delivery 03/30/25 05:52 03/30/25 05:57 03/30/25 06:01 Temperature Pulse Rate 91 Blood Pressure 119/76 Pulse Oximetry 97 99 Oxygen Delivery 03/30/25 06:02 03/30/25 06:07 03/30/25 06:12 Temperature Pulse Rate Blood Pressure Pulse Oximetry 98 100 98 Oxygen Delivery 03/30/25 06:14 03/30/25 06:35 03/30/25 06:40 Temperature Pulse Rate Blood Pressure Pulse Oximetry 99 97 98 Oxygen Delivery 03/30/25 06:45 03/30/25 06:46 03/30/25 06:50 Temperature Pulse Rate 123 H Blood Pressure 125/94 H Pulse Oximetry 99 100 Oxygen Delivery 03/30/25 06:55 03/30/25 07:00 03/30/25 07:01 Temperature Pulse Rate 81 Blood Pressure 131/90 Pulse Oximetry 99 99 Oxygen Delivery 03/30/25 07:05 03/30/25 07:10 03/30/25 07:11 Temperature Pulse Rate Blood Pressure Pulse Oximetry 99 99 99 Oxygen Delivery 03/30/25 07:16 03/30/25 07:21 03/30/25 07:26 Temperature Pulse Rate 72 Blood Pressure 123/79 Pulse Oximetry 99 99 100 Oxygen Delivery 03/30/25 07:28 03/30/25 07:31 03/30/25 07:39 Temperature Pulse Rate 77 Blood Pressure 121/77 Pulse Oximetry 97 100 Oxygen Delivery 03/30/25 07:44 03/30/25 07:49 03/30/25 07:54 Temperature Pulse Rate Blood Pressure Pulse Oximetry 99 99 99 Oxygen Delivery 03/30/25 07:59 03/30/25 08:00 03/30/25 08:04 Temperature 97.5 F L Pulse Rate Blood Pressure Pulse Oximetry 99 100 Oxygen Delivery 03/30/25 08:09 03/30/25 08:14 03/30/25 08:16 Temperature Pulse Rate 91 Blood Pressure 107/73 Pulse Oximetry 100 99 Oxygen Delivery 03/30/25 08:19 03/30/25 08:32 03/30/25 08:40 Temperature Pulse Rate 64 Blood Pressure 118/72 Pulse Oximetry 99 99 98 Oxygen Delivery 03/30/25 08:45 03/30/25 08:46 03/30/25 09:01 Temperature Pulse Rate 92 82 Blood Pressure 135/92 H 112/74 Pulse Oximetry 97 Oxygen Delivery 03/30/25 09:16 03/30/25 09:31 03/30/25 09:34 Temperature Pulse Rate 93 73 Blood Pressure 113/77 132/86 Pulse Oximetry 99 Oxygen Delivery 03/30/25 09:39 03/30/25 09:44 03/30/25 09:46 Temperature Pulse Rate 83 Blood Pressure 130/86 Pulse Oximetry 100 100 Oxygen Delivery 03/30/25 09:49 03/30/25 09:54 03/30/25 10:01 Temperature Pulse Rate 86 Blood Pressure 133/91 H Pulse Oximetry 100 99 100 Oxygen Delivery 03/30/25 10:06 03/30/25 10:08 03/30/25 10:11 Temperature 98 F Pulse Rate Blood Pressure Pulse Oximetry 100 100 Oxygen Delivery 03/30/25 10:13 03/30/25 10:16 03/30/25 10:18 Temperature Pulse Rate 85 77 Blood Pressure 125/75 132/73 Pulse Oximetry 100 Oxygen Delivery 03/30/25 10:21 03/30/25 10:23 03/30/25 10:25 Temperature Pulse Rate 70 76 Blood Pressure 128/79 128/79 Pulse Oximetry 100 Oxygen Delivery 03/30/25 10:26 03/30/25 10:31 03/30/25 10:31 Temperature Pulse Rate Blood Pressure Pulse Oximetry 99 100 84 L Oxygen Delivery 03/30/25 10:31 03/30/25 10:31 03/30/25 10:33 Temperature Pulse Rate 92 70 Blood Pressure 140/100 H 109/66 Pulse Oximetry Oxygen Delivery 03/30/25 10:34 03/30/25 10:36 03/30/25 10:37 Temperature Pulse Rate 62 62 Blood Pressure 121/76 131/72 Pulse Oximetry 100 Oxygen Delivery 03/30/25 10:40 03/30/25 10:41 03/30/25 10:43 Temperature Pulse Rate 73 60 Blood Pressure 128/69 126/82 Pulse Oximetry 100 Oxygen Delivery 03/30/25 10:46 03/30/25 10:49 03/30/25 10:51 Temperature Pulse Rate 87 61 Blood Pressure 119/68 122/67 Pulse Oximetry 100 100 Oxygen Delivery 03/30/25 10:52 03/30/25 10:53 03/30/25 10:58 Temperature Pulse Rate 68 Blood Pressure 122/78 Pulse Oximetry 98 80 L 100 Oxygen Delivery 03/30/25 11:00 03/30/25 11:01 03/30/25 11:04 Temperature Pulse Rate 80 Blood Pressure 116/66 Pulse Oximetry 97 94 Oxygen Delivery 03/30/25 11:05 03/30/25 11:05 03/30/25 11:10 Temperature Pulse Rate Blood Pressure Pulse Oximetry 96 97 98 Oxygen Delivery 03/30/25 11:15 03/30/25 11:16 03/30/25 11:20 Temperature Pulse Rate 74 Blood Pressure 122/81 Pulse Oximetry 100 99 Oxygen Delivery 03/30/25 11:25 03/30/25 11:30 03/30/25 11:31 Temperature Pulse Rate 78 Blood Pressure 127/85 Pulse Oximetry 100 100 Oxygen Delivery 03/30/25 11:35 03/30/25 11:37 03/30/25 11:42 Temperature Pulse Rate Blood Pressure Pulse Oximetry 100 100 100 Oxygen Delivery 03/30/25 11:46 03/30/25 11:47 03/30/25 11:52 Temperature Pulse Rate 65 Blood Pressure 116/71 Pulse Oximetry 100 100 Oxygen Delivery 03/30/25 11:54 03/30/25 11:57 03/30/25 12:01 Temperature 98 F Pulse Rate 69 Blood Pressure 110/59 L Pulse Oximetry 99 Oxygen Delivery 03/30/25 12:02 03/30/25 12:07 03/30/25 12:12 Temperature Pulse Rate Blood Pressure Pulse Oximetry 99 98 99 Oxygen Delivery 03/30/25 12:16 03/30/25 12:17 03/30/25 12:22 Temperature Pulse Rate 81 Blood Pressure 106/78 Pulse Oximetry 99 100 Oxygen Delivery 03/30/25 12:27 03/30/25 12:31 03/30/25 12:32 Temperature Pulse Rate 72 Blood Pressure 108/74 Pulse Oximetry 100 100 Oxygen Delivery 03/30/25 12:37 03/30/25 12:42 03/30/25 12:46 Temperature Pulse Rate 65 Blood Pressure 116/79 Pulse Oximetry 100 99 Oxygen Delivery 03/30/25 12:47 03/30/25 12:52 03/30/25 12:56 Temperature Pulse Rate Blood Pressure Pulse Oximetry 98 100 99 Oxygen Delivery 03/30/25 13:01 03/30/25 13:06 03/30/25 13:07 Temperature Pulse Rate 76 Blood Pressure 123/85 Pulse Oximetry 100 100 100 Oxygen Delivery 03/30/25 13:11 03/30/25 13:16 03/30/25 13:18 Temperature Pulse Rate 86 Blood Pressure 114/73 Pulse Oximetry 100 100 99 Oxygen Delivery 03/30/25 13:21 03/30/25 13:26 03/30/25 13:31 Temperature Pulse Rate 68 Blood Pressure 97/59 L Pulse Oximetry 100 100 99 Oxygen Delivery 03/30/25 13:36 03/30/25 13:41 03/30/25 13:46 Temperature Pulse Rate 73 Blood Pressure 117/86 Pulse Oximetry 95 99 100 Oxygen Delivery 03/30/25 13:51 03/30/25 13:56 03/30/25 14:01 Temperature Pulse Rate 75 Blood Pressure 123/72 Pulse Oximetry 100 100 98 Oxygen Delivery 03/30/25 14:06 03/30/25 14:11 03/30/25 14:12 Temperature Pulse Rate Blood Pressure Pulse Oximetry 98 99 92 Oxygen Delivery 03/30/25 14:12 03/30/25 14:12 03/30/25 14:16 Temperature Pulse Rate 77 Blood Pressure 111/65 Pulse Oximetry 94 96 Oxygen Delivery 03/30/25 14:17 03/30/25 14:22 03/30/25 14:27 Temperature Pulse Rate Blood Pressure Pulse Oximetry 100 100 99 Oxygen Delivery 03/30/25 14:30 03/30/25 14:31 03/30/25 14:32 Temperature 97.3 F L Pulse Rate 61 Blood Pressure 93/54 L Pulse Oximetry 99 Oxygen Delivery 03/30/25 14:37 03/30/25 14:42 03/30/25 14:46 Temperature Pulse Rate 111 H Blood Pressure 99/62 L Pulse Oximetry 98 99 Oxygen Delivery 03/30/25 14:47 03/30/25 14:52 Temperature Pulse Rate Blood Pressure Pulse Oximetry 100 100 Oxygen Delivery H&P: Results Labs Labs: Short CBC 03/29/25 Range/Units 17:15 WBC 11.9 H (4.5-10.0) K/mm3 Hgb 13.4 (12.0-15.0) g/dL Hct 39.9 (37.0-47.0) % Plt Count 201 (150-375) k/mm3 Assessment and Plan Assessment and plan (1) Non-reassuring cardiotocographic tracing: Code(s): O36.8390 - Maternal care for abnormalities of the heart rate or rhythm, unspecified trimester, not applicable or unspecified Status: Acute Assessment and Plan: Admit. Cervidil then Pitocin.
--- NOTE | 2025-03-30 14:55 | PM.OBPNLAB ---
Pain Control Date/time seen: 03/30/25 0576 Comments: Cat 2, AROM clear /.
[2025-03-30] MEDS: OXYTOCIN 30 UNITS/NS 500 ML 30 UNITS/500 ML BAG 999 UNITS IV CONT (22:13)
[2025-03-30] MEDS: LIDOCAINE 1% LOCAL INJ 20 ML VIAL (22:17)
[2025-03-30] MEDS: OXYTOCIN 30 UNITS/NS 500 ML 30 UNITS/500 ML BAG 125 UNITS IV CONT (22:40)
--- NOTE | 2025-03-30 22:44 | PM.OBPRVD ---
OB - Vaginal Delivery Note Procedure Delivery date: 03/30/25 Events: Other (Non reassuring surveillance testing at term) Intrapartal Events: Decelerations (intermittent late decelerations, moderate variability ) Induction method: Per Misoprostol Protocol and Per Pitocin Protocol Delivery augmentation: Rupture of Membranes and Pitocin Delivery monitor: External FHT Route of delivery: Episiotomy description: Left Mediolateral Delivery repair: vicryl (2.0 vicryl) Quantitative Blood Loss (ml): 200 Anesthesia type: Epidural Disposition: Floor Complications: No immediate complications Narrative: She was admitted for having nonrepetitive decelerations at term. She had cytotec and then dilated to 2. Pitocin started. AROM clear. She continued to progress in labor. Tracing Cat2. She received epidural upon request. She progressed to complete. She pushed x 3 hours making continued progression with improving pushing effort. She delivered a male over left mediallateral episiotomy performed for deceleration and maternal exhaustion. Infants nose and mouth suctioned at perineum with bulb. Terminal meconium noted after deivery of infant. Infant placed on maternal abdomen and cord doubly clamped and cut. Infant taken to warmer. Pitocin started. Placenta delivered intact. MLE repaired with 3.0 vicryl. Patient tolerated procedure well. Baby Date of : 03/17/25 Time of : 10:09 Gestational Age by Date: 39 gender: Male Weight (pounds): 7 Weight (ounces): 13 presentation: vertex position: Right Occiput Anterior Placenta delivery description: Spontaneous Cord Vessel Description: 3 Vessels and Clamped/Cut score one minute: 7 score five minutes: 8
--- NOTE | 2025-03-30 22:53 | P.DS_ITS ---
DS: Admitting Diagnosis Discharge Date 04/01/25 Admitting Diagnosis Non reassuring surveillance testing. DS: Discharge Diagnosis Discharge Diagnosis (1) Vaginal delivery: Code(s): O80 - Encounter for full-term uncomplicated delivery Status: Acute OB - DS: Summary Hospital Course Hospital Course: She was admitted for [facility] for nonreassuring tracing. She had an uncomplicated vaginal delivery and course. She was discharged to home on day 2. OB Procedures : Ultrasound OB Procedures Intrapartum: Spontaneous Vag Delivery OB Procedures: : None Peripartum Data Delivery Method: Natural Vaginal Episiotomy description: Left Mediolateral complications: none Status at Discharge Functional status at discharge: independent ambulation Time Spent with Patient Time attestation: Total time spent providing and/or coordinating discharge services: Exam Const: General: cooperative Orientation/consciousness: oriented to person, oriented to place and oriented to time HENMT: Face/Nose/Sinus: Normal external nose present Eyes: General: appearance normal, both eyes and all related structures Resp: Effort & Inspection: normal respiratory effort GI: Inspection: normal to inspection Skin: General skin exam: normal color Neuro: General: oriented to person, oriented to place and oriented to time Extrem: General: normal to inspection and no calf tenderness Psych: Appearance: grossly normal Discharge Plan Discharge Attending physician on discharge: Arturo Shell Consulting providers: Fay Gould; Florina Logan Discharging Clinician: Arturo Shell Anticipated Discharge Date/Time: 03/31/25 09:29 Patient Disposition: Home Activity: may shower, no straining and pelvic rest Diet: regular Discharge Instructions: Education: Mom and Baby Guide Given to: Mother Follow-Up: Call your delivering provider's office for an appointment to be seen in: Call for appointment Mom and baby should come to the [facility] for the follow-up appointment. Appointment Date/Time: April 02, 2025 at 11:00 am What to expect at your follow-up visit: Physical Assessment Call [phone] if you are unable to keep your appointment time. BREAST CARE: * Wear a snug supportive bra. * For engorgement discomfort: Breast Feeding: * Apply warm moist washcloths * Express milk as needed to relieve engorgement * Wear loose clothing * For sore nipples: * Identify correct latch-on * Apply warm moist washcloths before and after nursing * Air dry nipples after nursing * May apply Lansinoh cream to nipples EPISIOTOMY/PERINEAL CARE: * Until bleeding stops, use your jose bottle after urinating * Change your pad frequently throughout the day * You may take sitz baths several times a day (fill your bathtub with warm water and soak for 20 minutes.) Do NOT bathe in the water * No tub baths until seen by your physician - You may shower ACTIVITY: * Rest as much as possible. * Do not exercise or lift anything heavier than your baby (such as laundry or other children.) * Avoid stairs or driving as much as possible. * Do not put anything into the vagina. No douching, tampons, or sexual activity until seen by physician. NOTIFY PHYSICIAN IF YOU HAVE ANY QUESTIONS OR IF ANY OF THE FOLLOWING SYMPTOMS OCCUR: * If your episiotomy becomes red, swollen, or more painful than what you have experienced in the hospital. * If your vaginal bleeding becomes foul smelling. * If your vaginal bleeding becomes more heavy than a period or if your bleeding changes from pink to bright red. However, you may pass an occasional walnut- sized clot once or twice for the first week . * If you experience a sharp, shooting pain in you calves. * If you discover a hard, reddened area on your breast or if you experience flu- like symptoms. DIET: * Eat regular, well-balanced meals. * Drink plenty of fluids daily. If , drink to thirst. Patient Language: Romansh Stand Alone Forms: General Discharge Information Follow-up/Referrals: Arturo Shell MD [Physician, [employer]] - Call for Appointment Discharge Medications: Continued DHA 200 mg capsule 200 mg PO DAILY Qty: 90 1RF Date of admission: 03/29/25 16:11 Primary Care Provider: UNKNOWN,DOCTOR Admitting Provider: Arturo Shell Attending physician on admission: Arturo Shell Condition: Stable
[2025-03-30] MEDS: IBUPROFEN 600 MG TABLET PO (23:55)
[2025-03-31] VITALS (8 sets, daily range): BP systolic 107–139; BP diastolic 60–84; PULSE 56–82; RESP 16; TEMP 36.6–36.9; O2SAT 97–100
[2025-03-31] MEDS: BENZOCAINE 20% AER SPR (*SP) 56 GM CAN 1 SPRAY TOPICAL (00:35)
[2025-03-31] MEDS: WITCH HAZEL 40 PADS 1 PAD TOPICAL (00:35)
--- NOTE | 2025-03-31 00:53 | OBPPTRN ---
Patient transferred to post room #283 via wheelchair. Support person present. Oriented to unit, room, information board, rooming in, admission packet and security measures. Patient verbalizes understanding.
[2025-03-31 04:52] LABS: Hematocrit 38.1 % (37.0-47.0); Hemoglobin 12.9 g/dL (12.0-15.0)
[2025-03-31] MEDS: IBUPROFEN 600 MG TABLET PO ×3 (08:19→23:05)
[2025-03-31] MEDS: MULTIVIT/MIN/PREN/FOL AC/IRON TABLET 1 TAB PO (08:19)
--- NOTE | 2025-03-31 10:23 | PC.NURSE ---
Introductions were made, then consulted with patient to assess needs related to . Discussed with mother her?plans to feed?her and the?experience so far. Infant had just fed at 0755 for 17 minutes and is currently asleep and not showing any feeding cues. We reviewed feeding on demand (8-12 times a day), feeding cues to watch for and reviewed the blue feeding sheet, handout given on latching. Mother completed the [facility] Referral form, placed on mother's physical chart, to be faxed on day of discharge. Resources provided for inpatient and outpatient services with the feeding sheet, mom/baby guide and name written on the communication board. Mother voiced understanding of information and will call if there is a request for assistance. Reported to the Primary RN.
--- NOTE | 2025-03-31 10:27 | WPDANLDPN2 ---
Anes-Prog Note L&D Date/Time: 03/31/25 10:27 Comfortable throughout: labor and delivery Neuraxial method: epidural Epidural/Spinal procedure site: clean & non-tender Neuro status: Neuro function grossly intact. Cardiovascular status: normal Respiratory status: normal Airway patency: baseline Mental status: baseline Post-Op hydration status: normal Vital Signs: Last Vital Signs Temp 36.7 C 03/31/25 08:10 Pulse 65 03/31/25 08:10 Resp 16 03/31/25 08:10 BP 131/60 03/31/25 08:10 Pulse Ox 98 03/31/25 08:10 O2 Del Method Room Air 03/29/25 17:41 Pain score (VAS): 4 I/O: Intake & Output 03/30/25 03/31/25 03/31/25 23:59 07:59 15:59 Output Total 200 100 Balance -200 -100 Post-procedural complaints: none Patient feedback: Patient satisfied with anesthetic care.
[2025-03-31] MEDS: ACETAMINOPHEN 325 MG TABLET 650 MG PO (11:04)
--- NOTE | 2025-03-31 12:37 | PC.NURSE ---
1155 Per mother infant is still sleeping, CLC and Primary RN encouraged her to unwrap and place him skin to skin, watch for feeding cues and call out for assistance if unable to breastfeed. 1230 CLC checked in to see if infant had breastfed, mother is in the bathroom. is unwrapped and in the crib, father of baby by his side, per FOB is starting to wake up and mother is going to feed when she is done in the bathroom. Encouraged parents to call out if any assistance needed, if they cannot get baby to latch or if any questions.
--- NOTE | 2025-03-31 14:14 | PC.NURSE ---
1405. Breast pump provided due to moms request. Mom states she would like to try to avoid formula if possible, and wants to start pumping to practice and see if she can collect some additional milk to supplement with if needed. Instructions given on cleaning, care, usage, that there should be no pain, pumping schedule for milk production, collection, and storage of human milk. Patient was assessed for correct placement, flange size, to pump for comfort and nipple stretching/stimulation for adequate milk production every 3 hours (8 times in 24 hours) 1-2 times at night. Parents are encouraged to record the pumping schedule on the feeding sheet.?Mother voiced understanding of the education shared along with mom/baby guide and the pump measurement, flange fit handout for additional resource information. Reported to the Primary RN.
--- NOTE | 2025-03-31 14:15 | PC.NURSE ---
1415. Nipple shield provided to mother due to grade 1 inverted nipple on the R breast. Reviewed good handwashing, cleaning the nipple shield and the appropriate way to apply and use as a tool. Discussed with mom the nipple shield precautions, possible complications associated with the risks and benefits. Reviewed practicing with a nipple shield, then without and how to protect the milk supply and production. Mom and baby guide referred to as a resource for outpatient services, community resources and when to call a provider. Mom voiced understanding of the importance of hand expression, nipple stimulation and initiating a pumping schedule if infant continues to nurse with the shield. Reported to the Primary RN.
[2025-04-01 08:10] VITALS: BP 131/62; PULSE 62; RESP 16; TEMP 36.6; O2SAT 99
[2025-04-01] MEDS: MULTIVIT/MIN/PREN/FOL AC/IRON TABLET 1 TAB PO (09:34)
[2025-04-01] MEDS: DOCUSATE SODIUM 100 MG CAPSULE PO (09:35)
--- NOTE | 2025-04-01 10:00 | PC.NURSE ---
Consulted with mother concerning needs and she shared her ability to independently latch infant optimally without pain. Mother is feeding appropriately for growth of and understands stimulating to eat if needed. Infant has had appropriate feedings in the last 24 hours meets the outcomes for weight, output, blood sugar and jaundice at this time. Reinforced understanding of milk production, transition of milk, signs of adequate intake, transition of stool, prevention/relief of engorgement, plugged ducts, mastitis, community resources ([facility] form faxed), and when to call a provider using the resource of the feeding sheet along with the mom and baby guide. She has a breast pump at home and the Services phone number for outpatient assistance. Mother voiced understanding of the information shared, is confident to continue effectively her infant at home, when to call for assistance, denies any additional assistance or education at this time. Reported to the Primary RN.
[2025-04-01] MEDS: IBUPROFEN 600 MG TABLET PO (11:18)
--- NOTE | 2025-04-01 11:48 | P.PNOB_ITS ---
OB - PN: Subj Subjective Date/time seen: 04/01/25 11:48 Patient comments: pain well controlled, tolerating diet and other (Decreasing lochia.) baby status: doing well and nursing well OB - PN: Obj Data Labs 03/31/25 04:27 OB - PN A/P Plan day: 2 Plan: discharge home and other Comments: Patient doing well. Follow up 4-6 weeks. Discharge instructions provided. Time Spent With Patient Time: Total time spent is greater than 50% in coordination of care (as documented) at patient's floor/unit and/or counseling patient: Time with patient: less than 15 minutes Exam 2 Psych: Affect: normal affect Other: Abd: fundus firm below umbilicus, nontender Perineum: healing Ext: nontender
[2025-04-02 11:08] VITALS: BP 127/80; PULSE 64; RESP 18; TEMP 36.6; O2SAT 100
== END 2025-04-01 13:18 | disposition home or self-care (01) | DRG 560 ==
LOC: ANHLDR 03-30 22:54 → ANHOB2 03-31 02:18
PROVIDERS: Admitting Provider Obstetrics & Gynecology; Visit Provider Obstetrics & Gynecology
DX: O76 Abnormality in fetal heart rate and rhythm complicating labor and delivery (principal); Z37.0 Single live birth; Z3A.39 39 weeks gestation of pregnancy; O63.1 Prolonged second stage (of labor); O75.81 Maternal exhaustion complicating labor and delivery
CPT/HCPCS: 36415; 85014; 85018; 85025; 86593; 86850; 86900; 86901; A9270; J2003; J2405; J2590; J2795; J7120